=== PATIENT | male | born 1960 | race Caucasian/White ===

== ENCOUNTER 2017-02-28 20:07 | Emergency (ER) | payer OTHER ==
[~2017-02-28] VITALS: Ht 172.7 cm; Wt 91.4 kg
[~2017-02-28 20:07] MED LIST: AMARYL2 MG PO; ASPIRIN E.C.81 M1 PO; ASPIRIN81 M1 PO; AUGMENTIN875 MG PO; BACTRIM,SEPT1 TABLET PO; BAYER CHILDREN'81 M1 PO; BENAZEPRIL HCL40 MG PO; Cogentin PO; DOXYCYCLINE HY100 MG PO; FELODIPINE ER10 MG PO; FLOMAX0.4 MG PO; GEMFIBROZIL600 MG PO; GLIMEPIRIDE2 MG PO; HYDROCHLOROTHIA25 MG PO; JANUVIA100 MG PO; LEXAPRO10 MG PO; LOTENSIN40 MG PO; LOVASTATIN10 MG PO; LOVASTATIN40 MG PO; Lactinex,Floranex PO; METFORMIN HCL1000 MG PO; METOPROLOL SUCC25 MG PO; PREDNISONE50 MG PO; PRILOSEC OTC20 MG PO; PRILOSEC20 MG PO; PROAIR HFA8.5 GM IH; PROLIXIN DEC25 MG/ML IM; Plendil PO; SEROQUEL300 MG PO; SEROQUEL400 MG PO; SEROquel PO; ST. JOSEPH ASPI81 MG PO; Zithromax PO
[2017-02-28 21:17] LABS: HEMATOCRIT 37.4 % (38.0-50.0); MCH 32.9 PG (29.0-34.0); MCHC 37.2 G/DL (30.0-36.0); MCV 88.6 FL (86-99); MEAN PLAT.VOLUME 9.5 uM^3 (9.0-12.4); PLATELET COUNT 371 K/uL (156-360); RBC DIS.WIDTH-CV 11.7 % (11.8-14.6); RBC DIS.WIDTH-SD 36.9 % (39-53); RED BLOOD COUNT 4.22 M/uL (4.00-5.50); WHITE BLOOD COUNT 18.8 K/uL (4.1-10.2)
[2017-02-28 21:27] LABS: CHLORIDE 100 mEq/L (99-109); POTASSIUM 4.5 mEq/L (3.7-5.4); SODIUM 135 mEq/L (136-147)
[2017-02-28 21:29] LABS: GLUCOSE 137 mg/dL (70-99)
[2017-02-28 21:30] LABS: ANION GAP 10 MEQ/L (2-14)
[2017-02-28 21:31] LABS: TOTAL BILIRUBIN 0.4 mg/dL (0.0-1.0)
[2017-02-28 21:32] LABS: ALKALINE PHOSPHATASE 99 IU/L (3-129)
[2017-02-28 21:33] LABS: GFR ESTIMATE (CALCULATED) > 59 mL/min/
[2017-02-28 21:34] LABS: UREA NITROGEN (BUN) 19 mg/dL (9-23)
[2017-02-28 21:36] LABS: LIPASE 15 U/L (1.0-51.0)
[2017-02-28 22:14] LABS: ADD MIUA? YES; BILIRUBIN NEGATIVE; BLOOD NEGATIVE; COLOR YELLOW ((YELLOW)); GLUCOSE (STRIP) 50; KETONES NEGATIVE; LEUKOCYTES SMALL; NITRITE NEGATIVE; PROTEIN (STRIP) 100; SPECIFIC GRAVITY 1.012 (1.000-1.030); UROBILINOGEN 0.2 MG/DL (0.2-1.0)
[2017-02-28 22:18] LABS: BACTERIA NONE SEEN /HPF; EPITHELIAL CELLS 1+ /HPF; HYALINE CASTS 0-5 /LPF; MUCUS NONE SEEN /LPF; RED BLOOD CELLS 0-5 /HPF (0-5); UCUL ADDED? NO
[2017-03-01] MEDS ORDERED: FLAGYL500 MG PO (01:14)
[2017-03-01] MEDS ORDERED: ZOFRAN ODT4 MG PO (01:14)
[2017-03-01] MEDS ORDERED: CIPRO500 MG PO (01:14)
[2017-03-01] MEDS ORDERED: PERCOCET 5/31 TABLET PO (01:14)
[2017-03-01 02:50] VITALS: BP 126/82
== END 2017-03-01 03:12 | disposition home or self-care (01) ==
LOC: EME 20:07
PROVIDERS: Physician Assistant
DX: K52.9 Noninfective gastroenteritis and colitis, unspecified (principal); D72.829 Elevated white blood cell count, unspecified; E11.9 Type 2 diabetes mellitus without complications; E78.5 Hyperlipidemia, unspecified; I10 Essential (primary) hypertension; Z79.84 Long term (current) use of oral hypoglycemic drugs; F17.200 Nicotine dependence, unspecified, uncomplicated
CPT/HCPCS: 74177; 80053; 81003; 83690; 85027; 99281; 99284; J0744; J2270; J2405; J7030; S0030

== ENCOUNTER 2017-03-09 20:32 | Emergency (ER) | payer OTHER ==
[~2017-03-09] VITALS: Ht 172.7 cm; Wt 92.0 kg
[~2017-03-09 20:32] MED LIST changes: +CIPRO500 MG PO; +FLAGYL500 MG PO; +PERCOCET 5/31 TABLET PO; +ZOFRAN ODT4 MG PO
[2017-03-09 21:24] LABS: HEMATOCRIT 39.1 % (38.0-50.0); MCH 32.3 PG (29.0-34.0); MCHC 35.8 G/DL (30.0-36.0); MCV 90.3 FL (86-99); MEAN PLAT.VOLUME 9.2 uM^3 (9.0-12.4); PLATELET COUNT 443 K/uL (156-360); RBC DIS.WIDTH-CV 11.7 % (11.8-14.6); RBC DIS.WIDTH-SD 38.6 % (39-53); RED BLOOD COUNT 4.33 M/uL (4.00-5.50); WHITE BLOOD COUNT 12.2 K/uL (4.1-10.2)
[2017-03-09 21:33] LABS: CHLORIDE 97 mEq/L (99-109); POTASSIUM 4.9 mEq/L (3.7-5.4); SODIUM 134 mEq/L (136-147)
[2017-03-09 21:35] LABS: GLUCOSE 139 mg/dL (70-99)
[2017-03-09 21:37] LABS: ANION GAP 14 MEQ/L (2-14); TOTAL BILIRUBIN 0.2 mg/dL (0.0-1.0)
[2017-03-09 21:39] LABS: ALKALINE PHOSPHATASE 80 IU/L (3-129); GFR ESTIMATE (CALCULATED) 48 mL/min/
[2017-03-09 21:40] LABS: UREA NITROGEN (BUN) 20 mg/dL (9-23)
[2017-03-10 02:15] LABS: LIPASE 42 U/L (1.0-51.0)
[2017-03-10 03:09] LABS: ADD MIUA? NO; BILIRUBIN NEGATIVE; BLOOD NEGATIVE; COLOR YELLOW ((YELLOW)); GLUCOSE (STRIP) NEGATIVE; KETONES NEGATIVE; LEUKOCYTES NEGATIVE; NITRITE NEGATIVE; PROTEIN (STRIP) NEGATIVE; UCUL ADDED? NO; UROBILINOGEN 0.2 MG/DL (0.2-1.0)
[2017-03-10 04:06] VITALS: BP 167/92
== END 2017-03-10 04:07 | disposition home or self-care (01) ==
LOC: EME 20:32
PROC: 0T9B70Z Drainage of Bladder with Drainage Device, Via Natural or Artificial Opening (ICD-10-PCS; principal; 2017-03-09)
DX: K59.00 Constipation, unspecified (principal); R10.9 Unspecified abdominal pain; E86.0 Dehydration; R33.9 Retention of urine, unspecified; E11.9 Type 2 diabetes mellitus without complications; E78.5 Hyperlipidemia, unspecified; I10 Essential (primary) hypertension; F20.9 Schizophrenia, unspecified; Z79.82 Long term (current) use of aspirin; Z79.84 Long term (current) use of oral hypoglycemic drugs; Z79.899 Other long term (current) drug therapy; F17.200 Nicotine dependence, unspecified, uncomplicated
CPT/HCPCS: 74176; 80053; 81003; 83690; 85027; 99281; 99285; J7030